=== PATIENT | male | born 1950 | race Caucasian/White ===

== ENCOUNTER 2016-06-16 | Outpatient (CLI) | payer SELFPAY | END 2016-06-16 23:59 | disposition critical access hospital (66) | DX: R55 Syncope and collapse (principal) | CPT/HCPCS: A0425; A0429 ==

== ENCOUNTER 2016-06-16 17:29 | Emergency (ER) | payer SELFPAY ==
--- NOTE | 2016-06-16 17:47 | ED Physician Documentation ---
PD HPI SYNCOPE - Stated complaint Stated Complaint: SYNCOPE - Chief complaint Chief Complaint: General - History obtained from History obtained from: Patient, Family, EMS - Additional information Additional information: This is a relatively healthy 65-year-old gentleman who had just finished watching the football game. He had a few drinks and smoked some marijuana. He was sitting playing cards with his daughter and he became pale and about 5 seconds later had a full syncopal episode for about 30 seconds with rapid return to normal. There was no associated chest pain or trouble breathing. He now feels fine. Review of Systems Ten Systems: 10 systems reviewed and negative Constitutional: denies: Fever, Chills Nose: denies: Rhinorrhea / runny nose, Congestion Cardiac: denies: Chest pain / pressure, Palpitations Respiratory: denies: Dyspnea, Cough PD PAST MEDICAL HISTORY - Past Medical History Past Medical History: Yes Cardiovascular: Hypertension - Past Surgical History Past Surgical History: No - Present Medications Home Medications: Ambulatory Orders Medication Instructions Recorded Confirmed Lisinopril 5 mg PO DAILY 06/16/16 06/16/16 - Allergies Allergies/Adverse Reactions: Allergies Allergy/AdvReac Type Severity Reaction Status Date / Time No Known Drug Allergies Allergy Verified 06/16/16 17:35 - Social History Does the pt smoke?: No Smoking Status: Never smoker Does the pt drink ETOH?: Yes Does the pt have substance abuse?: Yes Substance Use and Type: Marijuana PD ED PE NORMAL - Vitals Vital signs reviewed: Yes - General General: Alert and oriented X 3, No acute distress - HEENT HEENT: PERRL, EOMI, Pharynx benign - Neck Neck: Supple, no meningeal sign, No bony TTP - Cardiac Cardiac: RRR, No murmur - Respiratory Respiratory: No respiratory distress, Clear bilaterally - Abdomen Abdomen: Non tender, No organomegaly - Derm Derm: Normal color, Warm and dry - Extremities Extremities: No edema, No calf tenderness / cord - Neuro Neuro: Alert and oriented X 3, arts administrator 2-12 intact, No motor deficit, No sensory deficit, Normal speech - Psych Psych: Normal mood, Normal affect Results - Vitals Vitals: Vital Signs - 24 hr 06/16/16 06/16/16 06/16/16 17:31 17:56 18:16 Temperature 36.6 C Heart Rate 89 94 Heart Rate [ 97 Sitting] Heart Rate [ 106 H Standing] Heart Rate [ 89 Supine] Respiratory 14 16 Rate Blood Pressure 160/83 H 136/89 H Blood Pressure 139/73 H [Sitting] Blood Pressure 157/82 H [Standing] Blood Pressure 137/69 H [Supine] O2 Saturation 100 100 Oxygen O2 Source Room air - EKG (time done) 1736 Rate: Rate (enter#) (94) Rhythm: NSR [place]: LAD Intervals: Normal OK QRS: Normal Ischemia: Non specific changes Computer interpretation: Agree with computer - Labs Labs: Laboratory Tests 06/16/16 06/16/16 06/16/16 18:30 18:30 18:30 WBC 13.2 H RBC 4.49 L Hgb 13.4 L Hct 40.6 L MCV 90.4 MCH 29.9 MCHC 33.1 RDW 14.0 Plt Count 190 MPV 9.3 Neut # 10.9 H Lymph # 1.3 L [place] # 0.8 Eos # 0.0 Baso # 0.1 Absolute Nucleated RBC 0.00 Nucleated RBCs 0.0 Sodium 137 Potassium 3.1 L Chloride 99 L Carbon Dioxide 22 Anion Gap 16.0 H BUN 20 Creatinine 0.8 Estimated GFR (MDRD) 97 Glucose 168 H Calcium 8.9 Total Bilirubin 0.7 AST 21 ALT 14 Alkaline Phosphatase 28 L Troponin I < 0.04 Total Protein 7.3 Albumin 4.4 Globulin 2.9 Albumin/Globulin Ratio 1.5 Lipase 40 Ethyl Alcohol 50.9 - Rads (name of study) Single view chest Radiology: EMP read contemporaneously (normal) PD MEDICAL DECISION MAKING - ED course ED course: This is a 65-year-old gentleman who is healthy there syncopal episode after a combination of marijuana and alcohol today. He is nonischemic EKG, relatively normal labs, potassium was repleted orally. He felt much better after IV fluids , he did have borderline orthostatics prior the IV fluids. Departure - Departure Disposition: 01 Home, Self Care Clinical Impression: Dehydration Syncope Qualifiers: Syncope type: unspecified Qualified Code(s): R55 - Syncope and collapse Condition: Good Record reviewed to determine appropriate education?: Yes Instructions: ED Dehydration, ED Fainting Unkn Cause Comments: Call your doctor to arrange a follow up appointment. Make the next available appointment. In the interim return anytime if worse or if new symptoms develop. Your blood pressure was elevated today on check in to the emergency department. This does not mean that you have hypertension, it is a common phenomenon to check into the emergency department and have elevated blood pressure. I recommend that you see your primary care physician within the week to have it rechecked when you're feeling better.
[2016-06-16] MEDS: SODIUM CHLORIDE 0.9% 1,000 ML IV ONE (17:50)
--- NOTE | 2016-06-16 18:19 | XRAY Preliminary Report ---
Exam: XR Chest 1 View IMPRESSION: No acute disease. [facility] SITE ID: [id number]
--- NOTE | 2016-06-16 18:22 | XRAY Report ---
EXAM: CHEST RADIOGRAPHY EXAM DATE: 06/16/2016 06:08 PM. CLINICAL HISTORY: Syncope. COMPARISON: None. TECHNIQUE: 1 view. FINDINGS: Lungs/Pleura: Mild scarring or atelectasis in left base. Otherwise clear. No effusion or pneumothorax . Mediastinum: Within exam limitations, cardiomediastinal contour is normal. Upper lobe vessels not dis tended. Other: Degenerative changes. IMPRESSION: No acute disease. [facility] Referring Provider Line: [phone] SITE ID: [id number]
[2016-06-16 19:06] LABS: BASOPHILS # (AUTO) 0.1 10^3/uL (0.0-0.1); BASOPHILS % (AUTO) 0.9 %; EOSINOPHILS % (AUTO) 0.3 %; HCT - HEMATOCRIT 40.6 % (42.0-52.0); HGB - HEMOGLOBIN 13.4 g/dL (14.0-18.0); LYMPHOCYTES # (AUTO) 1.3 10^3/uL (1.5-3.5); LYMPHOCYTES % (AUTO) 10.2 %; MEAN CORPUSCULAR HEMOGLOBIN 29.9 pg (27.0-31.0); MEAN CORPUSCULAR HGB CONC 33.1 g/dL (32.0-36.0); MEAN CORPUSCULAR VOLUME 90.4 fL (80.0-94.0); MEAN PLATELET VOLUME 9.3 fL (7.4-11.4); MONOCYTES # (AUTO) 0.8 10^3/uL (0.0-1.0); MONOCYTES % (AUTO) 6.4 %; NEUTROPHILS # (AUTO) 10.9 10^3/uL (1.5-6.6); NEUTROPHILS % (AUTO) 82.2 %; RED BLOOD COUNT 4.49 10^6/uL (4.70-6.10); UNCORRECTED WHITE BLOOD COUNT 13.2 x10^3/uL; WHITE BLOOD COUNT 13.2 x10^3/uL (4.8-10.8)
[2016-06-16 19:18] LABS: ALBUMIN/GLOBULIN RATIO 1.5 (1.0-2.2); BILIRUBIN,TOTAL 0.7 mg/dL (0.2-1.0); CALCIUM 8.9 mg/dL (8.5-10.3); CREATININE 0.8 mg/dL (0.6-1.2); POTASSIUM 3.1 mmol/L (3.5-5.0); TOTAL PROTEIN 7.3 g/dL (6.7-8.2)
[2016-06-16] MEDS ORDERED: POTASSIUM BICARB 25 MEQ TABLET PO ONE (19:42)
[2016-06-16] MEDS: POTASSIUM BICARB 25 MEQ TABLET PO STA (19:45)
[2016-06-16 19:57] VITALS: BP 120/66
== END 2016-06-16 19:55 | disposition home or self-care (01) ==
LOC: ED 17:29
DX: E86.0 Dehydration (principal); R55 Syncope and collapse; I10 Essential (primary) hypertension
CPT/HCPCS: 36415; 71010; 80053; 80320; 83690; 84484; 85025; 93005; 93010; 96360; 96361; 99284